=== PATIENT | male | born 1980 | race Caucasian/White ===

== ENCOUNTER 2021-06-01 10:59 | Emergency (ER) | payer SELFPAY ==
[2021-06-01 10:59] VITALS: BP 158/88; PULSE 56; RESP 18; TEMP 37.3; O2SAT 99; BMI 29.3
--- NOTE | 2021-06-01 11:58 | HMH.EDUTC ---
[facility] [place] Clinical Impression: Nausea vomiting and diarrhea Disposition: Home, Self-Care Condition on Discharge: Good Instructions: Diarrhea, DI for Cough -- Adult, Nausea and Vomiting-Adult Additional Instructions: Drink extra fluids with and between meals. If you have difficulty drinking, try very small amounts of water or suck on ice chips. ? Avoid fruit juices, as these do not replace minerals and can actually increase diarrhea. ? Children and adults can use sports drinks to replenish electrolytes. Younger children and infants should use products formulated for children, like oral rehydration solutions. ? Eat food in small amounts and let your stomach recover. ? Get lots of rest. You may feel tired or weak. ? No greasy or fried foods for the next 24-48 hours BRAT diet Bananas Rice Apples and [place] ? Make sure to drink plenty of liquids ? Return if needed ? Straight to ER if any life threatening symptoms ? Zofran as prescribed ? You was given an outpatient order for diarrhea panel, please collect specimen and bring back to outpatient lab then call back to the [facility] or follow up with family doctor for results ? Follow up with family doctor in the next 48-72 hours if no improvement or any worsening of symptoms Prescriptions: Ondansetron [Zofran 4mg ODT] 4 mg PO TIDP PRN #12 tab PRN Reason: Nausea Transmission Status: Received by [id number] Referrals: Provider,Referral, MD [Primary Care Provider] - As needed Forms: Work/School Release Time of Disposition: 12:28 Medical Decision Making - Antonio Inquiry Pt receiving controlled substance: No Antonio was queried for this patient: No Vital Signs: 06/01/21 10:59 06/01/21 12:28 Temperature 99.2 F 99.2 F Temperature Source Oral Pulse Rate 56 L Pulse Rate [Left Radial] 56 L Respiratory Rate 18 18 Blood Pressure 158/88 H Blood Pressure [Right Arm] 158/88 H Blood Pressure Mean [Right Arm] 111 Blood Pressure Source [Right Arm] Automatic Cuff Blood Pressure Position [Right Arm] Sitting 02 Sat by Pulse Oximetry 99 Oxygen Delivery Method Room Air Room Air Orders (Tests/Meds): ED MEDICATIONS Discontinued Medications Generic Name Dose Route Start Last Admin Trade Name Freq PRN Reason Stop Dose Admin Ondansetron HCl 4 mg 06/01/21 12:03 06/01/21 12:12 Ondansetron 4mg Odt SL 06/01/21 12:04 4 mg ONCE ONE Administration ORDERS Category Date Time Status Covid-19 Nasal PCR ([facility]) Routine Lab 06/01/21 11:13 Received Medical Decision Narrative: No vomiting since arrival able to keep down drink without vomiting after medication [facility] [place] - General Stated complaint: possible stomach bug Time Seen by Provider: 06/01/21 11:58 Mode of Arrival: Ambulatory Source of Information: Patient Limitations: No Limitations Description of Symptoms (Recalled from Triage Doc. by RN): c/o stomach pain and nausea, unable to keep anything down including water. Feels like it is the stomach bug that he had a few years back HEENT Symptoms (Recalled from RN notes): No Resp Symptoms (Recalled from RN notes): No Skin Symptoms (Recalled from RN notes): No MS Symptoms (Recalled from RN notes): No Functional Status (Recalled from RN notes): na - History of Present Illness Provider Complaint: Patient states that he has been having body aches, chills N/V/D States feels like a stomach bug he had a few years back States that today he has been having N/V/D and not been able to keep anything down so he came in to get checked before he got dehydrated Denies sore throat denies SOA - Related Data Previous Rx's Medication Instructions Recorded Ondansetron [Zofran 4mg ODT] 4 mg PO Q8HP PRN #30 tab.rapdis 01/17/19 Ondansetron [Zofran 4mg ODT] 4 mg PO TIDP PRN #12 tab 06/01/21 Allergies Allergy/AdvReac Type Severity Reaction Status Date / Time No Known Allergies Allergy Verified 01/17/19 14:46 - Worker's Comp Is this a Worker'
[2021-06-01 12:28] VITALS: BP 158/88; PULSE 56; RESP 18; TEMP 37.3; O2SAT 99
== END 2021-06-01 12:37 | disposition home or self-care (01) ==
PROVIDERS: Emergency Provider Nurse Practitioner
DX: R11.2 Nausea with vomiting, unspecified (principal); F17.210 Nicotine dependence, cigarettes, uncomplicated; Z20.822 Contact with and (suspected) exposure to COVID-19
CPT/HCPCS: 99202; C9803; G0463; U0003; U0005

== ENCOUNTER 2023-05-16 06:30 | Emergency (ER) | payer SELFPAY ==
[2023-05-16 06:31] VITALS: BP 128/86; PULSE 82; RESP 16; TEMP 36.9; O2SAT 100; BMI 29.5
[2023-05-16 06:35] VITALS: BP 128/86; PULSE 75; O2SAT 100
--- NOTE | 2023-05-16 06:59 | HMH.EDGENADL ---
Discharge Plan Disposition Patient Disposition: Home, Self-Care Prescriptions Prescriptions: New ondansetron 4 mg tablet,disintegrating 4 mg PO Q6H PRN (Reason: nausea and vomiting) 5 Days Qty: 20 0RF Referrals Follow up/Referrals: Provider,Referral, [Primary Care Provider] - See instructions Activity Restrictions/Add. Instructions Additional Instructions/Restrictions: Return with any worsening abdominal pain or inability to tolerate fluids or food by mouth. Clinical Impressions Clinical Impression: Nausea vomiting and diarrhea Instructions Patient Instructions: DI for Diarrhea and Traveler's Diarrhea -- Adult, DI for Diarrhea and Traveler's Diarrhea -- Child, DI for Nausea -- Adult, DI for Nausea -- Child Discharge ED Provider: Riccardo Vu Adult HPI <Radha Mohan MD - Last Filed: 05/16/23 07:55> General Chief complaint: Nausea/Vomiting/Diarrhea Stated complaint: Vomiting,diarrhea,abd pain Time Seen by Provider: 05/16/23 07:03 History of Present Illness HPI narrative: Patient is a previously healthy 42-year-old male here with nausea vomiting and diarrhea. States this has been ongoing since Monday. He currently denies any pain states he does not feel dehydrated. Nonbloody nonbilious emesis no blood in the stool no fevers subjectively. Related Data Previous Rx's Medication Instructions Recorded ondansetron 4 mg disintegrating 4 mg PO Q6H PRN nausea and 05/16/23 tablet vomiting 5 days #20 tabs Allergies Allergy/AdvReac Type Severity Reaction Status Date / Time No Known Allergies Allergy Verified 01/17/19 14:46 <Riccardo Vu MD - Last Filed: > General Mode of Arrival: Ambulatory Source of Information: Patient Limitations: No Limitations Description of Symptoms (Recalled from ER Triage Doc. by RN): pt reports n/v/d since Monday, reports taking Pepto and Zofran with some relief. Pt also reports burning with urination [facility] <Radha Mohan MD - Last Filed: 05/16/23 07:55> [facility] Social History Smoking Status: Current every day smoker tobacco type: cigarettes packs per day: 1 second hand exposure: Yes alcohol intake: current current occupational status: employed Travel in the last 8 weeks: None housing: house <Riccardo Vu MD - Last Filed: > [facility] Disclaimer: The information contained in this section may have been updated after the patient was seen, as this information can be updated by other users. <Radha Mohan MD - Last Filed: 05/16/23 07:55> ROS Obtained: Yes All systems reviewed & no additional complaints except as documented Physical Exam <Radha Mohan MD - Last Filed: 05/16/23 07:55> General General appearance: alert and in no apparent distress Respiratory Respiratory exam: Present normal lung sounds bilaterally Cardiovascular Cardiovascular exam: Present regular rate and other (Brisk capillary refill warm extremities); Absent tachycardia Abdominal Exam Abdominal exam: Present soft; Absent distention, tenderness, guarding, rebound or rigidity Neurological Exam Neurological exam: Present alert and oriented X3 Medical Decision Making <Radha Mohan MD - Last Filed: 05/16/23 07:55> Antonio Inquiry Pt receiving controlled substance: No Vital Signs: 05/16/23 06:31 05/16/23 06:35 05/16/23 07:30 Temperature 98.4 F Temperature Source Oral Pulse Rate 75 72 Pulse Rate [Right] 82 Respiratory Rate 16 Blood Pressure 128/86 129/81 Blood Pressure [Right Arm] 128/86 Blood Pressure Mean 108 99 Blood Pressure Mean [Right Arm] 100 Blood Pressure Source [Right Arm] Automatic Cuff 02 Sat by Pulse Oximetry 100 100 100 Oxygen Delivery Method Room Air Orders (Tests/Meds): ED MEDICATIONS Discontinued Medications Generic Name Dose Route Start Last Admin Trade Name Freq PRN Reason Stop Dose Admin Ondansetron HCl 4 mg 05/16/23 06:57 05/16/23 07:01 Ondansetron 4mg Odt SL 05/16/23 06:58 4 mg
[2023-05-16 07:05] LABS: Microscopic, Urine URINE MICROSCOPIC (MICROSCOPIC)
[2023-05-16 07:07] LABS: Appearance,Urine CLEAR (Clear); Blood, Urine 1+ (Negative); Color,Urine YELLOW (Yellow); Glucose,Urine (UA) Negative (Negative); Ketones,Urine 1+ (Negative); Leukocyte Esterase,Urine TRACE (Negative); Nitrate,Urine Negative (Negative); Protein,Urine TRACE (Negative); Specific Gravity, Urine 1.025 (1.005-1.030); Urobilinogen,Urine 0.2 EU/dl (0.2)
[2023-05-16 07:30] VITALS: BP 129/81; PULSE 72; O2SAT 100
[2023-05-16 08:04] VITALS: BP 129/81; PULSE 72; RESP 16; TEMP 36.9; O2SAT 100
[2023-05-16 08:06] LABS: Bilirubin,Urine Negative (Negative); RBC,Urine Occasional #/hpf (0-3); Squamous Epithelial Cell,Urine Occasional #/hpf (0-5)
[2023-05-16 08:07] LABS: Bacteria,Urine Trace /lpf
== END 2023-05-16 08:05 | disposition home or self-care (01) ==
PROVIDERS: Emergency Provider Emergency Medicine
DX: R11.0 Nausea (principal); R11.10 Vomiting, unspecified; R10.84 Generalized abdominal pain
CPT/HCPCS: 81001; 99283

== ENCOUNTER 2025-05-13 13:18 | Observation (INO) | payer MEDICAID, SELFPAY ==
[2025-05-13] VITALS (12 sets, daily range): BP systolic 113–164; BP diastolic 70–112; PULSE 99–127; RESP 12–19; TEMP 36.8–37.1; O2SAT 94–99; BMI 26.0; BMI 25.0
--- NOTE | 2025-05-13 13:31 | HMH.EDGENADL ---
Discharge Plan Disposition Patient Disposition: Admitted Clinical Impressions Clinical Impression: Nausea vomiting and diarrhea, Alcohol withdrawal Discharge ED Provider: Efra White General Adult HPI <ALIX Hansen - Last Filed: 05/13/25 16:38> General Chief complaint: Nausea/Vomiting/Diarrhea Stated complaint: weakness, diarrhea, vomiting, sore throat Time Seen by Provider: 05/13/25 13:30 Mode of Arrival: Ambulatory Source of Information: Patient Description of Symptoms (Recalled from ER Triage Doc. by RN): patient presents to the ED for nausea/vomiting/diarrhea that started 3 days ago. krishna states he cant keep anything down. rejit is also shaking in triage and states hes cold . History of Present Illness HPI narrative: This is a 44-year-old male presenting to the emergency department for evaluation of nausea, vomiting, and diarrhea. Patient reports symptoms first began 3 days ago as nausea. He had been around some people at work that had the stomach bug. Because of his nausea, he stopped drinking. Patient had previously been drinking approximately 5 shots of liquor every night. He has not done this for the past 2 nights. Since then he has had episodes of vomiting and diarrhea. He reports after he vomits he has some abdominal pain but otherwise does not. He has not had any chest pain or shortness of breath. No altered mental status, seizures. Prior to arrival the patient attempted an [id number] nausea medication that did not help his symptoms. Please note that the above description of symptoms, and this electronic medical record under categorization of was recalled from ER triage doctor by RN reflective of an initial nursing assessment, however, is not reflective of my full history and physical exam I was personally taken and clarified. Consequentially, this preceding description of symptoms which may include the patient's categorize chief complaint in the EMR, do not reflect my personal clinical impression, and the ultimate description of history of present illness send patient stated complaints should be deferred to the section of the note. Unless stated otherwise were congruent with the section of the note, additional signs, symptoms, or incongruence should be interpreted as an accurate with my clinical impression. Related Data Previous Rx's ?Medication ?Instructions ?Recorded ondansetron 4 mg disintegrating 4 mg PO Q6H PRN nausea and 05/16/23 tablet vomiting 5 days #20 tabs Allergies Allergy/AdvReac Type Severity Reaction Status Date / Time No Known Allergies Allergy Verified 01/17/19 14:46 PFSH <ALIX Hansen - Last Filed: 05/13/25 16:38> [facility] [place] Disclaimer: The information contained in this section may have been updated after the patient was seen, as this information can be updated by other users. Social History Smoking Status: Never smoker second hand exposure: Yes alcohol intake: current alcohol intake frequency: 0-2 drinks per day current occupational status: employed Travel in the last 8 weeks?: None housing: house Have you lived/traveled outside [place] in past 30 days?: No Contact w/someone who lives/traveled outside US past 30 days?: No Exposure to someone with infectious disease in past 14 days?: No Do you have a fever (greater than 100.4 F or 38 C)?: No Have you tested positive for COVID-19?: No Exposed to someone with COVID-19 in past 14 days?: No Do you have a sore throat?: No Do you have a cough?: No Do you have any weakness?: No Do you have any diarrhea?: No Are you experiencing any unusual bleeding?: No Do you have any muscle aches/pain?: No Do you have any abdominal pain?: No Are you experiencing loss of taste or smell?: No <ALIX Hansen - Last Filed: 05/13/25 16:38> ROS Obtained: Yes Systems reviewed as appropriate & no additional complaints except as documented Cardiovascular Cardiovascular: Denies chest pain, Denies diaphoresis and Denies syncope Respiratory Respiratory: Denies shortness of breath Gastrointestinal Gastrointestingal: Reports abdominal pain, diarrhea and vomiting Genitourinary Male Genitourinary: Denies difficulty urinating, Denies oliguria, Denies urinary frequency and Denies urinary incontinence Musculoskeletal Musculoskeletal: Denies abnormal gait Neurologic Neurologic: Denies abnormal gait, Denies abnormal movements, Denies seizure-like activity and Denies syncope Physical Exam <ALIX Hansen - Last Filed: 05/13/25 16:38> General General appearance: alert and in no apparent distress Head Head exam: atraumatic and normocephalic Eye Eye exam: Present scleral icterus Neck Neck exam: Present full ROM Respiratory Respiratory exam: Present normal lung sounds bilaterally; Absent respiratory distress Cardiovascular Cardiovascular exam: Present irregular rhythm; Absent regular rate or normal rhythm Abdominal Exam Abdominal exam: Present soft; Absent distention or tenderness Neurological Exam Neurological exam: Present alert and oriented X3 Medical Decision Making <ALIX Hansen - Last Filed: 05/13/25 16:38> Medical Records Medical records reviewed: Yes I reviewed the patient's medical records. Screening: Per USPSTF and CDC recommendations, given the prevalence of disease in our region, it is our hospital?s policy to screen for HIV and viral Hepatitis for all patients aged 18 and over and those with ongoing risk factors. Antonio Inquiry Pt receiving controlled substance: No Vital Signs: 05/13/25 13:20 05/13/25 14:01 05/13/25 14:42 Temperature 98.3 F Temperature Source Oral Pulse Rate 123 H 103 H Pulse Rate [Right Radial] 104 H Respiratory Rate 18 19 12 Blood Pressure 113/70 137/83 Blood Pressure [Right Arm] 164/112 H Blood Pressure Mean Blood Pressure Mean [Right Arm] 129 Blood Pressure Source [Right Arm] Automatic Cuff Blood Pressure Position [Right Arm] Sitting 02 Sat by Pulse Oximetry 97 94 L 97 Oxygen Delivery Method Room Air Room Air 05/13/25 15:16 05/13/25 15:31 05/13/25 16:00 Temperature Temperature Source Pulse Rate 99 H 127 H Pulse Rate [Right Radial] Respiratory Rate 17 16 Blood Pressure 136/84 136/76 143/93 H Blood Pressure [Right Arm] Blood Pressure Mean 101 93 Blood Pressure Mean [Right Arm] Blood Pressure Source [Right Arm] Blood Pressure Position [Right Arm] 02 Sat by Pulse Oximetry 97 97 Oxygen Delivery Method 05/13/25 16:31 Temperature Temperature Source Pulse Rate 103 H Pulse Rate [Right Radial] Respiratory Rate 16 Blood Pressure 135/81 Blood Pressure [Right Arm] Blood Pressure Mean Blood Pressure Mean [Right Arm] Blood Pressure Source [Right Arm] Blood Pressure Position [Right Arm] 02 Sat by Pulse Oximetry 98 Oxygen Delivery Method Lab Data Lab Results 05/13/25 10:17: WBC 13.8 H, RBC 5.32, Hgb 18.7 H, Hct 54.1 H, MCV 101.7 H, MCH 35.2 H, MCHC 34.6, RDW 13.8, Plt Count 233, MPV 10.1, Neut % (Auto) 80.9 H, Lymph % (Auto) 12.5, [place] % (Auto) 5.6, Eos % (Auto) 0.2, Baso % (Auto) 0.5, Neut # (Auto) 11.2 H, Lymph # (Auto) 1.7, [place] # (Auto) 0.8, Eos # (Auto) 0.0, Baso # (Auto) 0.1, Sodium 138, Potassium 4.0, Chloride 89 L, Carbon Dioxide 23, Anion Gap 30.0 H, BUN 14, Creatinine 1.60 H, Estimated Creat Clear 77, Estimated GFR 47 L, Est GFR ( Amer) 57 L, Glucose 120 H, Calcium 9.8, Total Bilirubin 6.7 H, AST 126 H, ALT 145 H, Alkaline Phosphatase 130 H, Troponin I < 0.01, Total Protein 9.2 H, Albumin 5.2 H, Globulin 4.0 H, Albumin/Globulin Ratio 1.3, Lipase 159 05/13/25 13:25: SARS-CoV-2 (PCR) Not detected, Influenza A Untype (PCR) Not detected, Influenza Type B (PCR) Not detected 05/13/25 13:42: Lactate 4.5 H, Magnesium 1.3 L, Direct Bilirubin 1.6 H, Lactate Dehydrogenase 208 L, Total Creatine Kinase 232 H, TSH 9.27 H, Free T4 1.24, Acetone Level None detected 05/13/25 10:17 05/13/25 10:17 Orders (Tests/Meds): ED MEDICATIONS Generic Name Dose Route Start Last Admin Trade Name Freq PRN Reason Stop Dose Admin Magnesium Sulfate 2 gm/ 1,015 mls @ 333 mls/hr 05/13/25 14:00 05/13/25 14:06 Thiamine HCl 100 mg/ IV 05/13/25 17:02 333 mls/hr Multivitamins 10 ml/ Lactated ONCE ONE Administration Ringer's Sodium Chloride 10 ml 05/13/25 14:36 05/13/25 14:37 Sodium Chloride 0.9% 10ml Syr (Rad Only) IV 06/12/25 14:35 10 ml NEEDED PRN Administration Maintain IV Site Discontinued Medications Generic Name Dose Route Start Last Admin Trade Name Freq PRN Reason Stop Dose Admin Diazepam 5 mg 05/13/25 13:45 05/13/25 13:59 Diazepam 10mg/2ml Syringe IV 05/13/25 13:46 5 mg ONCE ONE Administration Folic Acid 1 mg 05/13/25 14:00 05/13/25 14:06 Folic Acid 1mg Tablet PO 05/13/25 14:01 1 mg ONCE ONE Administration Iopamidol 75 ml 05/13/25 14:36 05/13/25 14:37 Iopamidol-370 (76%);100ml Bottle IV 05/13/25 14:37 75 ml ONCE ONE Administration Ondansetron HCl 4 mg 05/13/25 13:42 05/13/25 13:59 Ondansetron 4mg Odt SL 05/13/25 13:43 4 mg ONCE ONE Administration Sodium Chloride 1,000 ml 05/13/25 13:42 05/13/25 14:11 Sodium Chloride 0.9% 500ml Bag IV 05/13/25 13:43 Not Given ONCE ONE ORDERS Category Date Time Status CT abdomen pelvis w con Stat Cat Scan 05/13/25 14:18 Completed US gallbladder Stat Exams 05/13/25 14:39 Completed Acetaminophen Stat Lab 05/13/25 15:46 Ordered Acetone, Serum (Rapid) Stat Lab 05/13/25 13:42 Completed Bilirubin,Direct Stat Lab 05/13/25 13:42 Completed CBC w/Auto Diff [Complete Blood Count Auto Diff] Stat Lab 05/13/25 10:17 Completed CK [Creatine Kinase] Stat Lab 05/13/25 13:42 Completed CMP [Comprehensive Metabolic Panel] Stat Lab 05/13/25 10:17 Completed Free T4 (Free Thyroxine) Stat Lab 05/13/25 13:42 Completed Haptoglobin Stat Lab 05/13/25 13:42 Received Hepatitis Panel Stat Lab 05/13/25 14:37 Received LDH [Lactate Dehydrogenase] Stat Lab 05/13/25 13:42 Completed Lactic Acid Stat Lab 05/13/25 13:42 Completed Lipase Stat Lab 05/13/25 10:17 Completed Magnesium Stat Lab 05/13/25 13:42 Completed Osmolality Stat Lab 05/13/25 15:46 Ordered Rapid PCR Covid and Flu A/B Stat Lab 05/13/25 13:25 Completed Salicylate Stat Lab 05/13/25 15:46 Ordered TSH [Thyroid Stimulating Hormone] Stat Lab 05/13/25 13:42 Completed Trop I [Troponin I] Stat Lab 05/13/25 10:17 Completed Troponin I Q3H Lab 05/13/25 16:45 Ordered Troponin I Q3H Lab 05/13/25 19:45 Ordered Medical Decision Narrative: In summary, this is a 44-year-old male presenting to the emergency department today for evaluation of nausea, vomiting, and diarrhea. Symptoms first began 3 days ago as nausea. At this time patient stopped drinking alcohol which he had previously been a daily drinker. Since then he has had vomiting and diarrhea. He denies any chest pain, shortness of breath, headache, seizures. No history of alcohol withdrawal seizures. On exam patient appears to be uncomfortable but is nontoxic-appearing. Respiratory rate and effort are normal and nonlabored. Lungs are clear to auscultation bilaterally without adventitious sounds. Upon cardiac auscultation there is an irregularly irregular rhythm appreciated. The abdomen is soft, nondistended, nontender to palpation. Normal neurologic exam. Scleral icterus present. Differential diagnoses include but are not limited to alcohol withdrawal, vitamin deficiency, alcohol withdrawal, Warnicke encephalopathy, hepatitis, liver failure, A-fib, among others. We will obtain CBC, CMP, troponin, magnesium level, EKG. EKG reveals atrial fibrillation with RVR and a ventricular rate of 104. There are p waves present. Will give 5 mg of Valium to treat alcohol withdrawal. We will administer banana bag. CBC reveals leukocytosis with white count of 13.8. Neutrophils 80.9% H&H stable. CMP with anion gap of 30. Hypochloremia, creatinine elevated at 1.6. Magnesium low at 1.3. Total bili elevated at 6.7. Direct bilirubin elevated at 1.6. Mild transaminitis. AST 126. ALT 145. Alk phos 130. Acetone negative. First troponin negative. COVID and flu negative. CT abdomen and pelvis without acute abnormality. Ultrasound of the right upper quadrant shows fatty liver disease but no acute pathology. Lactate elevated at 4.5. TSH elevated. T4 normal indicating subclinical hypothyroidism. Patient may have alcohol induced hepatitis. Regardless of etiology, patient will require admission for continued workup and management. I consulted our hospital medicine team for admission of this patient. They have accepted to [facility] and continued management will be directed by their team. <Efra White DO - Last Filed: 05/13/25 17:00> Vital Signs: 05/13/25 13:20 05/13/25 14:01 05/13/25 14:42 Temperature 98.3 F Temperature Source Oral Pulse Rate 123 H 103 H Pulse Rate [Right Radial] 104 H Respiratory Rate 18 19 12 Blood Pressure 113/70 137/83 Blood Pressure [Right Arm] 164/112 H Blood Pressure Mean Blood Pressure Mean [Right Arm] 129 Blood Pressure Source [Right Arm] Automatic Cuff Blood Pressure Position [Right Arm] Sitting 02 Sat by Pulse Oximetry 97 94 L 97 Oxygen Delivery Method Room Air Room Air 05/13/25 15:16 05/13/25 15:31 05/13/25 16:00 Temperature Temperature Source Pulse Rate 99 H 127 H Pulse Rate [Right Radial] Respiratory Rate 17 16 Blood Pressure 136/84 136/76 143/93 H Blood Pressure [Right Arm] Blood Pressure Mean 101 93 Blood Pressure Mean [Right Arm] Blood Pressure Source [Right Arm] Blood Pressure Position [Right Arm] 02 Sat by Pulse Oximetry 97 97 Oxygen Delivery Method 05/13/25 16:31 Temperature Temperature Source Pulse Rate 103 H Pulse Rate [Right Radial] Respiratory Rate 16 Blood Pressure 135/81 Blood Pressure [Right Arm] Blood Pressure Mean Blood Pressure Mean [Right Arm] Blood Pressure Source [Right Arm] Blood Pressure Position [Right Arm] 02 Sat by Pulse Oximetry 98 Oxygen Delivery Method Lab Data Lab Results 05/13/25 10:17: WBC 13.8 H, RBC 5.32, Hgb 18.7 H, Hct 54.1 H, MCV 101.7 H, MCH 35.2 H, MCHC 34.6, RDW 13.8, Plt Count 233, MPV 10.1, Neut % (Auto) 80.9 H, Lymph % (Auto) 12.5, [place] % (Auto) 5.6, Eos % (Auto) 0.2, Baso % (Auto) 0.5, Neut # (Auto) 11.2 H, Lymph # (Auto) 1.7, [place] # (Auto) 0.8, Eos # (Auto) 0.0, Baso # (Auto) 0.1, Sodium 138, Potassium 4.0, Chloride 89 L, Carbon Dioxide 23, Anion Gap 30.0 H, BUN 14, Creatinine 1.60 H, Estimated Creat Clear 77, Estimated GFR 47 L, Est GFR ( Amer) 57 L, Glucose 120 H, Calcium 9.8, Total Bilirubin 6.7 H, AST 126 H, ALT 145 H, Alkaline Phosphatase 130 H, Troponin I < 0.01, Total Protein 9.2 H, Albumin 5.2 H, Globulin 4.0 H, Albumin/Globulin Ratio 1.3, Lipase 159 05/13/25 13:25: SARS-CoV-2 (PCR) Not detected, Influenza A Untype (PCR) Not detected, Influenza Type B (PCR) Not detected 05/13/25 13:42: Lactate 4.5 H, Magnesium 1.3 L, Direct Bilirubin 1.6 H, Lactate Dehydrogenase 208 L, Total Creatine Kinase 232 H, TSH 9.27 H, Free T4 1.24, Acetone Level None detected Orders (Tests/Meds): ED MEDICATIONS Generic Name Dose Route Start Last Admin Trade Name Antoinette PRN Reason Stop Dose Admin Magnesium Sulfate 2 gm/ 1,015 mls @ 333 mls/hr 05/13/25 14:00 05/13/25 14:06 Thiamine HCl 100 mg/ IV 05/13/25 17:02 333 mls/hr Multivitamins 10 ml/ Lactated ONCE ONE Administration Ringer's Sodium Chloride 10 ml 05/13/25 14:36 05/13/25 14:37 Sodium Chloride 0.9% 10ml Syr (Rad Only) IV 06/12/25 14:35 10 ml NEEDED PRN Administration Maintain IV Site Discontinued Medications Generic Name Dose Route Start Last Admin Trade Name Antoinette PRN Reason Stop Dose Admin Diazepam 5 mg 05/13/25 13:45 05/13/25 13:59 Diazepam 10mg/2ml Syringe IV 05/13/25 13:46 5 mg ONCE ONE Administration Folic Acid 1 mg 05/13/25 14:00 05/13/25 14:06 Folic Acid 1mg Tablet PO 05/13/25 14:01 1 mg ONCE ONE Administration Iopamidol 75 ml 05/13/25 14:36 05/13/25 14:37 Iopamidol-370 (76%);100ml Bottle IV 05/13/25 14:37 75 ml ONCE ONE Administration Ondansetron HCl 4 mg 05/13/25 13:42 05/13/25 13:59 Ondansetron 4mg Odt SL 05/13/25 13:43 4 mg ONCE ONE Administration Sodium Chloride 1,000 ml 05/13/25 13:42 05/13/25 14:11 Sodium Chloride 0.9% 500ml Bag IV 05/13/25 13:43 Not Given ONCE ONE ORDERS Category Date Time Status CT abdomen pelvis w con Stat Cat Scan 05/13/25 14:18 Completed US gallbladder Stat Exams 05/13/25 14:39 Completed Acetaminophen Stat Lab 05/13/25 15:46 Ordered Acetone, Serum (Rapid) Stat Lab 05/13/25 13:42 Completed Bilirubin,Direct Stat Lab 05/13/25 13:42 Completed CBC w/Auto Diff [Complete Blood Count Auto Diff] Stat Lab 05/13/25 10:17 Completed CK [Creatine Kinase] Stat Lab 05/13/25 13:42 Completed CMP [Comprehensive Metabolic Panel] Stat Lab 05/13/25 10:17 Completed Free T4 (Free Thyroxine) Stat Lab 05/13/25 13:42 Completed Haptoglobin Stat Lab 05/13/25 13:42 Received Hepatitis Panel Stat Lab 05/13/25 14:37 Received LDH [Lactate Dehydrogenase] Stat Lab 05/13/25 13:42 Completed Lactic Acid Stat Lab 05/13/25 13:42 Completed Lipase Stat Lab 05/13/25 10:17 Completed Magnesium Stat Lab 05/13/25 13:42 Completed Osmolality Stat Lab 05/13/25 15:46 Ordered Rapid PCR Covid and Flu A/B Stat Lab 05/13/25 13:25 Completed Salicylate Stat Lab 05/13/25 15:46 Ordered TSH [Thyroid Stimulating Hormone] Stat Lab 05/13/25 13:42 Completed Trop I [Troponin I] Stat Lab 05/13/25 10:17 Completed Troponin I Q3H Lab 05/13/25 16:45 Ordered Troponin I Q3H Lab 05/13/25 19:45 Ordered ECG Data Tracing #1: I reviewed this ECG and interpreted as documented below: EKG personally interpreted by me demonstrates normal sinus rhythm with a rate of 103 bpm, left axis, no SD prolongation, wide QRS with left bundle branch block morphology, no significant QTc prolongation. No STEMI by Sgarbossa criteria. There is upright QRS concordance with T waves in lead V6 but there is no ST elevation to meet criteria for STEMI Critical Care <ALIX Hansen - Last Filed: 05/13/25 16:38> Critical Care Time Critical Care Time: No
--- NOTE | 2025-05-13 13:35 | PC.NURSE ---
pt reports being a daily drinker. stopped 3 days ago and has been vomiting since
[2025-05-13 13:36] LABS: Coronavirus 19, PCR Not Detected (NotDetected); Influenza A, PCR Not Detected (NotDetected); Influenza B, PCR Not Detected (NotDetected)
--- NOTE | 2025-05-13 13:36 | ECG_ITS ---
APPROVED REPORT Exam: Resting ECG HR:103 bpm ECG Measurements Heart Rate 103 AXES QRSd 164 QRS -1 QT 399 T 114 QTc 459 Conclusion Normal sinus rhythm No PA prolongation Left bundle branch block Negative Jeffrbalicea Electronically signed by : Efra White, 05/13/2025 17:03:51
[2025-05-13] MEDS: ONDANSETRON 4MG ODT 4 MG SL (13:59)
[2025-05-13] MEDS: diazePAM 10MG/2ML SYRINGE 5 MG IV (13:59)
[2025-05-13 14:06] LABS: Alanine Aminotransferase 145 U/L (12-78); Albumin Level 5.2 g/dl (3.5-5.0); Albumin/Globulin Ratio 1.3 (1.1-1.8); Alkaline Phosphatase 130 U/L (38-126); Anion Gap 30.0 mEq/L (5-15); Aspartate Amino Transferase 126 U/L (17-59); Bilirubin,Total 6.7 mg/dl (0.2-1.3); Blood Urea Nitrogen 14 mg/dl (9-20); Calcium 9.8 mg/dl (8.4-10.2); Carbon Dioxide 23 mmol/L (22.0-30.0); Chloride 89 mmol/L (98-107); Creatinine Clearance Estimated 77 mL/min (50-200); Creatinine,Serum 1.60 mg/dl (0.66-1.25); Estimated Glomerular Filt Rate 47 ml/min (>60); GFR (African American) 57 ML/MIN (>60); Globulin 4.0 g/dL (1.3-3.2); Glucose 120 mg/dl (74-100); Potassium 4.0 mmoL/L (3.5-5.1); Sodium 138 mmol/L (136-145); Total Protein,Serum 9.2 g/dl (6.3-8.2)
[2025-05-13] MEDS: MAGNESIUM SULFATE 2 GM, THIAMINE HCL 100 MG, MVI, ADULT NO.1 WITH VIT K 10 ML in LACTAT... IV (14:06)
[2025-05-13] MEDS: FOLIC ACID 1MG TABLET 1 MG PO (14:06)
[2025-05-13 14:12] LABS: Lipase 159 U/L (23-300)
[2025-05-13 14:13] LABS: Magnesium 1.3 mg/dl (1.6-2.3)
--- NOTE | 2025-05-13 14:18 | CT_ITS ---
FINAL REPORT TECHNIQUE: Thin section axial images are obtained through the abdomen and pelvis after intravenous contrast. Reconstruction images were obtained from the axial data. Exam was performed using dose reduction techniques. CLINICAL HISTORY: abdominal pain; elevated billirubin, daily drinker, quit 3 days ago, vomiting FINDINGS: LUNG BASES: Lung bases are clear. Heart size is normal. LIVER: Diffusely fatty infiltrated. No focal lesion. GALLBLADDER/BILIARY SYSTEM: Gallbladder is present. No gallstones. No biliary dilatation. SPLEEN: Unremarkable. PANCREAS: Unremarkable. ADRENALS: Unremarkable. KIDNEYS/URETERS/BLADDER: No hydronephrosis, renal mass, or renal stone. Unremarkable urinary bladder. GI TRACT: Wall thickening of the distal esophagus. Esophagitis not excluded. No small bowel obstruction or dilatation. Normal appendix. No acute colon abnormality. PELVIC ORGANS: Unremarkable for age. LYMPH NODES/RETROPERITONEUM/MESENTERY: No lymphadenopathy. No abdominal aortic aneurysm. ABDOMINAL WALL: The abdominal wall is intact. FREE FLUID: No ascites. BONES: No acute osseous abnormality. IMPRESSION: No acute abnormality of the abdomen or pelvis. Reviewed, Interpreted and Dictated by Mirian Souza MD Transcribed by Tierra Winters Authenticated and . [facility]
[2025-05-13 14:21] LABS: Hematocrit 54.1 % (42.0-52.0); Immature Granulocytes % 0.3 %; Mean Corpuscular HGB Conc 34.6 g/dL (31.8-35.4); Mean Corpuscular Hemoglobin 35.2 pg (27.0-31.2); Mean Corpuscular Volume 101.7 fl (80-94); Nucleated Red Blood Cells % 0 %; Platelet Count 233 K/mm3 (142-424); Red Blood Count 5.32 M/mm3 (4.60-6.20); Red Cell Distribution Width-SD 52.2 fL; White Blood Count 13.8 K/mm3 (4.8-10.8)
[2025-05-13 14:24] LABS: Hemoglobin 18.7 g/dL (14.1-18.0)
[2025-05-13 14:26] LABS: Troponin I < 0.01 ng/ml (0.00-0.034)
[2025-05-13 14:27] LABS: Acetone, Serum (Rapid) None Detected (None Detect)
[2025-05-13] MEDS: IOPAMIDOL-370 (76%);100ML BOTTLE 75 ML IV (14:37)
[2025-05-13] MEDS: SODIUM CHLORIDE 0.9% 10ML SYR (RAD ONLY) 10 ML IV (14:37)
--- NOTE | 2025-05-13 14:39 | US_ITS ---
FINAL REPORT TECHNIQUE: Sonographic images of the right upper quadrant were obtained. CLINICAL HISTORY: Hyperbilirubinemia, RUQ pain FINDINGS: PANCREAS: Pancreatic head is normal. Tail is obscured. LIVER: Fatty infiltrated.. No focal hepatic lesion. No intrahepatic biliary ductal dilatation. GALLBLADDER: No gallstones. No gallbladder wall thickening or pericholecystic fluid. COMMON DUCT: 4 mm. Normal for age. RIGHT KIDNEY: The right kidney measures 10 cm. There is no hydronephrosis, mass, or stone. FREE FLUID: None. IMPRESSION: Fatty infiltration of the liver, otherwise unremarkable ultrasound of the right upper quadrant. Reviewed, Interpreted and Dictated by Mirian Souza MD Transcribed by Tierra Winters Authenticated and . [facility]
[2025-05-13 15:05] LABS: Bilirubin,Direct 1.6 mg/dl (0.0-0.4)
[2025-05-13 15:40] LABS: Creatine Kinase 232 U/L (55-170)
[2025-05-13 15:57] LABS: Free T4 (Free Thyroxine) 1.24 ng/dl (0.78-2.19)
[2025-05-13 16:12] LABS: Thyroid Stimulating Hormone 9.27 uIU/mL (0.465-4.68)
--- NOTE | 2025-05-13 16:38 | PC.NURSE ---
belt and link [employer] supervisor contacted for bed.
--- NOTE | 2025-05-13 16:53 | PC.NURSE ---
attempted to call report no answer
--- NOTE | 2025-05-13 16:57 | PC.NURSE ---
report given to cirilo eddy
--- NOTE | 2025-05-13 17:24 | PC.NURSE ---
arrived by w/c from ED
[2025-05-13 17:41] LABS: Acetaminophen < 10 ug/ml (10-30); Salicylate < 1.0 mg/dL (2.0-20.0)
[2025-05-13 17:42] LABS: Troponin I < 0.01 ng/ml (0.00-0.034)
--- NOTE | 2025-05-13 18:31 | P.HP_ITS ---
<Statement entered by Mark Pool MD - 05/16/25 11:59> Agree with plan of care as outlined by the [facility]. History of Present Illness *Admission Date: 05/13/25 *Reason for visit:: Nausea, vomiting, diarrhea *History of present illness: This is a 44-year-old male who has no significant past medical history who presents with a chief complaint of nausea, vomiting, and diarrhea. Due to patient's symptoms, he presented to the emergency room and evaluation. While in the emergency room, CT scan of the abdomen pelvis was negative for any acute intra-abdominal intrapelvic process. Ultrasound of the liver revealed fatty infiltration. Patient was tachycardic and there was a concern for potential withdrawal from alcohol. As a result, patient has been admitted for further management. During my evaluation of the patient, patient states he was recently exposed to a possible stomach bug from his coworkers. He reports nausea, nonbilious emesis, and diarrhea (2-3 episodes a day). Of note, patient states that he drinks 5 shots of wild turkey daily and has not had a shot of wild turkey for the past 3 days. Patient started to experience withdrawal symptomology. Patient states that he has been having a spasm occur in his right upper quadrant of his abdomen-he reports it happens intermittently. He is currently denying any chest pain, lightheadedness, dizziness, fever, chills, rigors, shortness of breath, dyspnea, PND, orthopnea. Patient is EKG was consistent with normal sinus rhythm, left bundle branch block, QTc of 451. Additional pertinent vitals obtained include a heart rate of 104, white blood cell 13.8, hemoglobin 18.7, hematocrit 54.1, venous lactic acid of 4.5, magnesium 1.3, CPK of 232, TSH 9.27, chloride of 89, creatinine 1.60, GFR 47, blood glucose 120, total bilirubin of 6.7, AST of 126, ALT of 145, alkaline phosphate 130, total protein 9.2, and albumin 5.2. [facility] Disclaimer: The information contained in this section may have been updated after the patient was seen, as this information can be updated by other users. Social History Smoking Status: Never smoker second hand exposure: Yes alcohol intake: current alcohol intake frequency: 0-2 drinks per day current occupational status: employed Travel in the last 8 weeks?: None housing: house Have you lived/traveled outside [place] in past 30 days?: No Contact w/someone who lives/traveled outside [place] past 30 days?: No Exposure to someone with infectious disease in past 14 days?: No Do you have a fever (greater than 100.4 F or 38 C)?: No Have you tested positive for COVID-19?: No Exposed to someone with COVID-19 in past 14 days?: No Do you have a sore throat?: No Do you have a cough?: No Do you have any weakness?: No Do you have any diarrhea?: No Are you experiencing any unusual bleeding?: No Do you have any muscle aches/pain?: No Do you have any abdominal pain?: No Are you experiencing loss of taste or smell?: No Other Medical History Have you received the Flu Vaccine for this season: No Have you received the Pneumonia Vaccine: No Review of Systems Review of Systems Review of systems:: pertinent systems reviewed and negative unless documented below Constitutional Constitutional: Reports body ache(s) and Reports poor appetite Eyes Eyes: Reports system reviewed and no additional complaints, except as documented ENT Ears, Nose, Mouth, and Throat: Reports system reviewed and no additional complaints, except as documented *Cardiovascular Cardiovascular: Reports system reviewed and no additional complaints, except as documented and Denies syncope *Respiratory Respiratory: Reports system reviewed and no additional complaints, except as documented *Gastrointestinal Gastrointestinal: Reports abdominal pain, Reports loose stools, Reports nausea and Reports vomiting *Genitourinary Genitourinary: Reports system reviewed and no additional complaints, except as documented *Musculoskeletal Musculoskeletal: Denies abnormal gait Integumentary/Breasts Skin/Breast: Reports system reviewed and no additional complaints, except as documented *Neurologic Neurologic: Reports system reviewed and no additional complaints, except as documented, Denies abnormal gait, Denies abnormal movements, Denies seizure-like activity and Denies syncope Psychiatric Psychiatric: Reports system reviewed and no additional complaints, except as documented Endocrine Endocrine: Reports system reviewed and no additional complaints, except as documented Hematologic/Lymphatic Hematologic/Lymphatic: Reports system reviewed and no additional complaints, except as documented Allergic/Immunologic Allergic/Immunologic: Reports system reviewed and no additional complaints, except as documented Meds Home Medications and Allergies New Prescriptions to Start Prescriptions: Allergies Allergy/AdvReac Type Severity Reaction Status Date / Time No Known Allergies Allergy Verified 01/17/19 14:46 Exam Data for Last 24 hours Vital signs and Labs for Last 24 Hours: Temp Pulse Resp BP Pulse Ox O2 Del Method 98.3 F 110 H 18 117/97 H 97 Room Air 05/13/25 17:31 05/13/25 17:31 05/13/25 17:31 05/13/25 17:31 05/13/25 17:31 05/13/25 18:25 Laboratory Results - last 24 hr 05/13/25 10:17: WBC 13.8 H, RBC 5.32, Hgb 18.7 H, Hct 54.1 H, MCV 101.7 H, MCH 35.2 H, MCHC 34.6, RDW 13.8, Plt Count 233, MPV 10.1, Neut % (Auto) 80.9 H, Lymph % (Auto) 12.5, Nicol[place] % (Auto) 5.6, Eos % (Auto) 0.2, Baso % (Auto) 0.5, Neut # (Auto) 11.2 H, Lymph # (Auto) 1.7, Nicol[place] # (Auto) 0.8, Eos # (Auto) 0.0, B aso # (Auto) 0.1, Sodium 138, Potassium 4.0, Chloride 89 L, Carbon Dioxide 23, Anion Gap 30.0 H, BUN 14, Creatinine 1.60 H, Estimated Creat Clear 77, Estimated GFR 47 L, Est GFR ( Amer) 57 L, Glucose 120 H, Calcium 9.8, Total Bilirubin 6.7 H, AST 126 H, ALT 145 H, Alkaline Phosphatase 130 H, Troponin I < 0.01, Total Protein 9.2 H, Albumin 5.2 H, Globulin 4.0 H, Albumin/Globulin Ratio 1.3, Lipase 159 05/13/25 13:25: SARS-CoV-2 (PCR) Not detected, Influenza A Untype (PCR) Not detected, Influenza Type B (PCR) Not detected 05/13/25 13:42: Lactate 4.5 H, Magnesium 1.3 L, Direct Bilirubin 1.6 H, Lactate Dehydrogenase 208 L, Total Creatine Kinase 232 H, TSH 9.27 H, Free T4 1.24, Acetone Level None detected 05/13/25 16:48: Troponin I < 0.01, Salicylates < 1.0 L, Acetaminophen < 10 L I & O for Last 24 hours: Intake & Output 05/10/25 05/11/25 05/12/25 05/13/25 23:59 23:59 23:59 23:59 Intake Total 1015 / 1015 Balance 1015 / 1015 Weight 89.584 kg Constitutional Constitutional: no acute distress and cooperative *Routine HEENT Exam Head: Present normocephalic Eye: Present EOMI and PERRL ENT: Present mucous membranes moist *Routine Neck Exam Neck: Present supple, full ROM and trachea midline *Routine Respiratory Exam Respiratory: Present CTA bilaterally, normal respiratory effort, able to speak in complete sentences and symmetric chest movement *Routine Cardiovascular Exam Cardiovascular: Present RRR, Normal S1 and Normal S2 *Routine Abdominal Exam Abdominal: Present soft and normoactive bowel sounds *Routine Rectal Exam Rectal:: deferred *Routine Genitalia Exam Genitalia:: deferred *Routine Extremities Exam Extremities: Present full ROM, pulses intact and normal capillary refill Routine Back/Spine/Pelvis Exam Back/Spine: Present full ROM *Routine Skin Exam Skin: Present intact, dry, warm and normal turgor *Routine Neurological Exam Neurological: Present alert, oriented X3, CN II-XII intact and moving all extremities Routine Psychiatric Exam Psychiatric: Present normal affect, normal thought process, cooperative, good insight and good judgment H&P: Result Impressions 44-year-old male with recent gastroenteritis presents with possible alcohol withdrawal symptoms last known drink was 3 days ago Assessment and Plan *Assessment and plan (1) Gastroenteritis: Status: Acute Category: Medical Code(s): K52.9 - Noninfective gastroenteritis and colitis, unspecified (2) Alcohol withdrawal: Status: Acute Qualifiers: Complication of substance-induced condition: with unspecified complication Qualified Code(s): F10.939 - Alcohol use, unspecified with withdrawal, unspecified Category: Medical Code(s): F10.939 - Alcohol use, unspecified with withdrawal, unspecified (3) Transaminitis: Status: Acute Category: Medical Code(s): R74.01 - Elevation of levels of liver transaminase levels (4) Elevated bilirubin: Status: Acute Category: Medical Code(s): R17 - Unspecified jaundice (5) Subclinical hypothyroidism: Status: Acute Category: Medical Code(s): E03.8 - Other specified hypothyroidism (6) Acute kidney injury: Status: Acute Category: Medical Code(s): N17.9 - Acute kidney failure, unspecified (7) Left bundle branch block: Status: Acute Category: Medical Code(s): I44.7 - Left bundle-branch block, unspecified (8) Leukocytosis: Status: Acute Qualifiers: Leukocytosis type: unspecified Qualified Code(s): D72.829 - Elevated white blood cell count, unspecified Category: Medical Code(s): D72.829 - Elevated white blood cell count, unspecified (9) Macrocytosis: Status: Acute Category: Medical Code(s): D75.89 - Other specified diseases of blood and blood-forming organs (10) Polycythemia: Status: Acute Category: Medical Code(s): D75.1 - Secondary polycythemia (11) Dehydration: Status: Acute Category: Medical Code(s): E86.0 - Dehydration (12) Lactic acidosis: Status: Acute Category: Medical Code(s): E87.20 - Acidosis, unspecified (13) Hepatic steatosis: Status: Acute Category: Medical Code(s): K76.0 - Fatty (change of) liver, not elsewhere classified Plan Assessment: Delirium tremors Transaminitis Elevated bilirubin Left bundle branch block Macrocytosis Hepatic steatosis -Will place patient on CIWA protocol - Unfortunately, we have no comparison EKG to determine if this left bundle branch block is new-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 Due to fatty liver and alcoholism - Will obtain INR - Had a discussion with the patient concerning fatty liver and alcoholism that fatty liver can be reversed, but coupled with alcoholism and fatty liver he could end up with cirrhosis which is nonreversible - Will consider 2D echo due to left bundle branch block-patient is currently without any chest pain Gastroenteritis Polycythemia Lactic acidosis Possible mild rhabdo Acute kidney injury; most likely prerenal; unknown baseline creatinine Leukocytosis with a left shift -Will obtain stool for culture would like to do BioFire - Normal saline at 125 mL an hour - Will trend CPK - Repeat venous lactic acid in a.m. - Patient's white blood cell count is most likely elevated due to contraction - However, patient started to have fever we will obtain blood cultures x 2 - Will obtain procalcitonin - I suspect white blood cell count with downward trend with IV hydration - Polycythemia is also in the setting of dehydration-Will trend hemoglobin hematocrit daily and I suspect this will improve with IV hydration - Patient's acute kidney injury is most likely in the setting of dehydration will trend daily. If no improvement will obtain renal ultrasound and urine studies Subclinical hypothyroidism - Will have patient follow-up with PCP as an outpatient - Free T4 was normal Plan: Admit patient to the MedSurg unit CBC/CMP daily CIWA protocol Vital signs every 4 hours Seizure precautions Regular diet 40 mg Lovenox subcu daily for DVT prophylaxis 21 mg nicotine patch daily 4 mg Zofran IV push every 6 hours as needed nausea and vomiting 40 mg of Protonix p.o. daily Full code I have discussed this case with attending physician Dr. Pool and I look fo kathiaard to more input
[2025-05-13] MEDS: 0.9 % SODIUM CHLORIDE 1000ML 1,000 ML 125 ML IV (19:03)
[2025-05-13 19:53] LABS: Reflex Lactic Add Lactic Reflex
[2025-05-13 20:21] LABS: Troponin I < 0.01 ng/ml (0.00-0.034)
[2025-05-13 20:32] LABS: Lactic Acid Follow Up (RFLX 1) 1.3 mmol/L (0.7-2.1)
[2025-05-13] MEDS: ONDANSETRON 4MG/2ML VIAL 4 MG IV (20:37)
[2025-05-13] MEDS: TRAMADOL 50MG TABLET 50 MG PO (20:37)
[2025-05-13] MEDS: NICOTINE 21MG/24HR PATCH 21 MG TD (20:38)
[2025-05-13] MEDS: PANTOPRAZOLE 40MG TABLET 40 MG PO (20:38)
[2025-05-14] VITALS: PULSE 110
[2025-05-14 04:00] VITALS: BP 157/78; PULSE 100; PULSE 103; RESP 15; TEMP 37.1; O2SAT 95; BMI 25.0
[2025-05-14 06:57] LABS: Hematocrit 47.5 % (42.0-52.0); Immature Granulocytes % 0.3 %; Mean Corpuscular HGB Conc 34.3 g/dL (31.8-35.4); Mean Corpuscular Hemoglobin 35.2 pg (27.0-31.2); Mean Corpuscular Volume 102.6 fl (80-94); Nucleated Red Blood Cells % 0 %; Platelet Count 171 K/mm3 (142-424); Red Blood Count 4.63 M/mm3 (4.60-6.20); Red Cell Distribution Width-SD 53.2 fL; White Blood Count 9.2 K/mm3 (4.8-10.8)
[2025-05-14 07:02] LABS: Albumin Level 4.0 g/dl (3.5-5.0); Chloride 92 mmol/L (98-107); Potassium 3.8 mmoL/L (3.5-5.1); Sodium 133 mmol/L (136-145)
[2025-05-14 07:03] LABS: INR 1.19 (0.9-1.1); Prothrombin Time 13.0 seconds (10.1-12.5)
[2025-05-14 07:04] LABS: Alanine Aminotransferase 85 U/L (12-78); Alkaline Phosphatase 86 U/L (38-126); Aspartate Amino Transferase 74 U/L (17-59); Bilirubin,Total 5.9 mg/dl (0.2-1.3)
[2025-05-14 07:05] LABS: Albumin/Globulin Ratio 1.2 (1.1-1.8); Anion Gap 16.8 mEq/L (5-15); Calcium 8.2 mg/dl (8.4-10.2); Carbon Dioxide 28 mmol/L (22.0-30.0); Creatine Kinase 223 U/L (55-170); Globulin 3.4 g/dL (1.3-3.2); Glucose 74 mg/dl (74-100); Magnesium 2.0 mg/dl (1.6-2.3); Total Protein,Serum 7.4 g/dl (6.3-8.2)
[2025-05-14 08:00] VITALS: BP 138/87; PULSE 90; PULSE 95; RESP 18; TEMP 36.8; O2SAT 97
[2025-05-14 08:30] VITALS: O2SAT 97
[2025-05-14] MEDS: MVI, ADULT NO.1 WITH VIT K 10 ML, THIAMINE HCL 100 MG, MAGNESIUM SULFATE 2 GM in LACTAT... 125 ML IV (09:27)
[2025-05-14] MEDS: FOLIC ACID 1MG TABLET 1 MG PO (09:27)
[2025-05-14] MEDS: THIAMINE 100MG TABLET 100 MG PO (09:27)
[2025-05-14 09:40] LABS: Hemoglobin 16.4 g/dL (14.1-18.0)
--- NOTE | 2025-05-14 09:59 | P.DS_ITS ---
<Statement entered by Mark Pool MD - 05/16/25 11:55> Agree with plan of care as outlined by the PURIFICATION SUPERVISOR. General Admission date:: 05/13/25 Discharge date: 05/14/25 HPI HPI HPI: This is a 44-year-old male who has no significant past medical history who presents with a chief complaint of nausea, vomiting, and diarrhea. Due to patient's symptoms, he presented to the emergency room and evaluation. While in the emergency room, CT scan of the abdomen pelvis was negative for any acute intra-abdominal intrapelvic process. Ultrasound of the liver revealed fatty infiltration. Patient was tachycardic and there was a concern for potential withdrawal from alcohol. As a result, patient has been admitted for further management. During my evaluation of the patient, patient states he was recently exposed to a possible stomach bug from his coworkers. He reports nausea, nonbilious emesis, and diarrhea (2-3 episodes a day). Of note, patient states that he drinks 5 shots of wild turkey daily and has not had a shot of wild turkey for the past 3 days. Patient started to experience withdrawal symptomology. Patient states that he has been having a spasm occur in his right upper quadrant of his abdomen-he reports it happens intermittently. He is currently denying any chest pain, lightheadedness, dizziness, fever, chills, rigors, shortness of breath, dyspnea, PND, orthopnea. Patient is EKG was consistent with normal sinus rhythm, left bundle branch block, QTc of 451. Additional pertinent vitals obtained include a heart rate of 104, white blood cell 13.8, hemoglobin 18.7, hematocrit 54.1, venous lactic acid of 4.5, magnesium 1.3, CPK of 232, TSH 9.27, chloride of 89, creatinine 1.60, GFR 47, blood glucose 120, total bilirubin of 6.7, AST of 126, ALT of 145, alkaline phosphate 130, total protein 9.2, and albumin 5.2. Hospital Course Hospital Course Hospital Course: Mr. Toribio is a 44-year-old male who presented to the emergency department yesterday with complaints of nausea, vomiting, abdominal pain, and diarrhea. Patient states that his symptoms began 2 to 3 days ago. He states that he is a daily drinker, approximately 5 shots of wild turkey daily. Patient states he has not had any alcohol in approximately 3 days. He believes he is starting to experience withdrawal symptoms. He states that he has been having spasms that occur in his right upper quadrant of his abdomen. Initial CIWA on admission was 17 (nausea, vomiting, tremors, anxiety, sweating, mild itching). Patient was given rally pack, IV Valium, Zofran. He did well with medications, multiple CIWA's prior to discharge were 0. After speaking with patient, he was interested in speaking with peers support, Анна. #Transaminitis #Elevated bilirubin #Hepatic stenosis #Alcohol use disorder ? Patient doing well this morning. Denies nausea, vomiting, diarrhea. He is not tremulous or diaphoretic. Patient states he is having very mild abdominal pain, rating it a 2/10. Lab work reassuring, WBC 9.2, no anemia noted, sodium 133, potassium 3.8. Magnesium improved to 2.0. LFTs improved, AST 74, ALT 85. ? Анна (peers support) discussed starting naltrexone for alcohol cravings. Patient current LFTs are elevated so we will have to wait to initiate medication. Patient is interested in attending recovery meetings and following up with peers support. Patient currently does not have insurance, working on obtaining now, but would like to follow-up with [facility] and a PCP once he obtains insurance benefits. Will make follow-up for peers support. ?Patient had right upper quadrant ultrasound which showed fatty liver. #Acute kidney injury ? Patient initial creatinine elevated at 1.6, likely in the setting of dehydration. Fluids overnight, repeat creatinine day of discharge 1.3. Unsure if patient baseline. Patient should follow with PCP in the coming weeks for further evaluation of kidney function. #Anxiety ? Patient states he is anxious about what is to come. Plans to do recovery meetings. Awaiting insurance for further alcohol craving management. Will initiate medication for anxiety. BuSpar 10 mg twice daily. #Subclinical hypothyroidism ? Patient's TSH on admission was elevated 9.27, free T4 within normal limits. Discussed with patient needing to follow with PCP for repeat TSH in 4 to 6 weeks and possible initiation of thyroid hormone medication. Total time spent on discharge 32 minutes in counseling, documentation, chart review, and direct care with patient. Exam Data for Last 24 hours Vital signs and Labs for Last 24 Hours: Temp Pulse Resp BP Pulse Ox O2 Del Method O2 Flow Rate 98.3 F 95 H 18 138/87 97 Room Air 2 05/14/25 08:00 05/14/25 08:00 05/14/25 08:00 05/14/25 08:00 05/14/25 08:00 05/14/25 08:00 05/14/25 05:00 Laboratory Results - last 24 hr 05/13/25 10:17: WBC 13.8 H, RBC 5.32, Hgb 18.7 H, Hct 54.1 H, MCV 101.7 H, MCH 35.2 H, MCHC 34.6, RDW 13.8, Plt Count 233, MPV 10.1, Neut % (Auto) 80.9 H, Lymph % (Auto) 12.5, [place] % (Auto) 5.6, Eos % (Auto) 0.2, Baso % (Auto) 0.5, Neut # (Auto) 11.2 H, Lymph # (Auto) 1.7, [place] # (Auto) 0.8, Eos # (Auto) 0.0, Baso # (Auto) 0.1, Sodium 138, Potassium 4.0, Chloride 89 L, Carbon Dioxide 23, Anion Gap 30.0 H, BUN 14, Creatinine 1.60 H, Estimated Creat Clear 77, Estimated GFR 47 L, Est GFR ( Amer) 57 L, Glucose 120 H, Calcium 9.8, Total Bilirubin 6.7 H, AST 126 H, ALT 145 H, Alkaline Phosphatase 130 H, Troponin I < 0.01, Total Protein 9.2 H, Albumin 5.2 H, Globulin 4.0 H, Albumin/Globulin Ratio 1.3, Lipase 159 05/13/25 13:25: SARS-CoV-2 (PCR) Not detected, Influenza A Untype (PCR) Not dete cted, Influenza Type B (PCR) Not detected 05/13/25 13:42: Haptoglobin 141, Lactate 4.5 H, Magnesium 1.3 L, Direct Bilir ubin 1.6 H, Lactate Dehydrogenase 208 L, Total Creatine Kinase 232 H, TSH 9.27 H , Free T4 1.24, Acetone Level None detected 05/13/25 14:37: Hepatitis A IgM Ab Negative, Hep Bs Antigen Negative, Hep B Core IgM Ab Negative, Hepatitis C Antibody Non reactive, HCV RNA PCR Test Info Comment 05/13/25 16:48: Troponin I < 0.01, Salicylates < 1.0 L, Acetaminophen < 10 L 05/13/25 19:41: Troponin I < 0.01 05/13/25 20:15: Lactate 1.3 05/14/25 06:19: WBC 9.2 D, RBC 4.63, Hgb 16.4 D, Hct 47.5, MCV 102.6 H, MCH 35.2 H, MCHC 34.3, RDW 13.9, Plt Count 171 D, MPV 9.9, Neut % (Auto) 66.1, Lymph % (Auto) 23.2, [place] % (Auto) 9.4 H, Eos % (Auto) 0.7, Baso % (Auto) 0.3, Neut # (Auto) 6.1, Lymph # (Auto) 2.1, [place] # (Auto) 0.9, Eos # (Auto) 0.1, Baso # (Auto) 0.0, PT 13.0 H, INR 1.19 H, Sodium 133 L, Potassium 3.8, Chloride 92 L, Carbon Dioxide 28, Anion Gap 16.8 H, Glucose 74 D, Calcium 8.2 L, Magnesium 2.0 D, Total Bilirubin 5.9 H, AST 74 H D, ALT 85 H D, Alkaline Phosphatase 86, Total Creatine Kinase 223 H, Total Protein 7.4, Albumin 4.0 D, Globulin 3.4 H, Albumin/Globulin Ratio 1.2 I & O for Last 24 hours: Intake & Output 05/11/25 05/12/25 05/13/25 05/14/25 23:59 23:59 23:59 23:59 Intake Total 1015 / 1015 1000 / 1000 Balance 1015 / 1015 1000 / 1000 Weight 89.584 kg 89.63 kg Results Data Completed and Pending Labs on day of discharge: Labs from last 24 hours 05/14/25 05/13/25 05/13/25 06:19 20:15 19:41 WBC 9.2 D RBC 4.63 Hgb 16.4 D Hct 47.5 MCV 102.6 H MCH 35.2 H MCHC 34.3 RDW 13.9 Plt Count 171 D MPV 9.9 Neut % (Auto) 66.1 Lymph % (Auto) 23.2 [place] % (Auto) 9.4 H Eos % (Auto) 0.7 Baso % (Auto) 0.3 Neut # (Auto) 6.1 Lymph # (Auto) 2.1 [place] # (Auto) 0.9 Eos # (Auto) 0.1 Baso # (Auto) 0.0 Haptoglobin PT 13.0 H INR 1.19 H Sodium 133 L Potassium 3.8 Chloride 92 L Carbon Dioxide 28 Anion Gap 16.8 H BUN Creatinine Estimated Creat Clear Estimated GFR Est GFR ( Amer) Glucose 74 D Lactate 1.3 Calcium 8.2 L Magnesium 2.0 D Total Bilirubin 5.9 H Direct Bilirubin AST 74 H D ALT 85 H D Alkaline Phosphatase 86 Lactate Dehydrogenase Total Creatine Kinase 223 H Troponin I < 0.01 Total Protein 7.4 Albumin 4.0 D Globulin 3.4 H Albumin/Globulin Ratio 1.2 Lipase TSH Free T4 Salicylates Acetaminophen Acetone Level SARS-CoV-2 (PCR) Hepatitis A IgM Ab Hep Bs Antigen Hep B Core IgM Ab Hepatitis C Antibody HCV RNA PCR Test Info Influenza A Untype (PCR) Influenza Type B (PCR) 05/13/25 05/13/25 05/13/25 16:48 14:37 13:42 WBC RBC Hgb Hct MCV MCH MCHC RDW Plt Count MPV Neut % (Auto) Lymph % (Auto) [place] % (Auto) Eos % (Auto) Baso % (Auto) Neut # (Auto) Lymph # (Auto) [place] # (Auto) Eos # (Auto) Baso # (Auto) Haptoglobin 141 PT INR Sodium Potassium Chloride Carbon Dioxide Anion Gap BUN Creatinine Estimated Creat Clear Estimated GFR Est GFR ( Amer) Glucose Lactate 4.5 H Calcium Magnesium 1.3 L Total Bilirubin Direct Bilirubin 1.6 H AST ALT Alkaline Phosphatase Lactate Dehydrogenase 208 L Total Creatine Kinase 232 H Troponin I < 0.01 Total Protein Albumin Globulin Albumin/Globulin Ratio Lipase TSH 9.27 H Free T4 1.24 Salicylates < 1.0 L Acetaminophen < 10 L Acetone Level None detected SARS-CoV-2 (PCR) Hepatitis A IgM Ab Negative Hep Bs Antigen Negative Hep B Core IgM Ab Negative Hepatitis C Antibody Non reactive HCV RNA PCR Test Info Comment Influenza A Untype (PCR) Influenza Type B (PCR) 05/13/25 05/13/25 13:25 10:17 WBC 13.8 H RBC 5.32 Hgb 18.7 H Hct 54.1 H MCV 101.7 H MCH 35.2 H MCHC 34.6 RDW 13.8 Plt Count 233 MPV 10.1 Neut % (Auto) 80.9 H Lymph % (Auto) 12.5 [place] % (Auto) 5.6 Eos % (Auto) 0.2 Baso % (Auto) 0.5 Neut # (Auto) 11.2 H Lymph # (Auto) 1.7 [place] # (Auto) 0.8 Eos # (Auto) 0.0 Baso # (Auto) 0.1 Haptoglobin PT INR Sodium 138 Potassium 4.0 Chloride 89 L Carbon Dioxide 23 Anion Gap 30.0 H BUN 14 Creatinine 1.60 H Estimated Creat Clear 77 Estimated GFR 47 L Est GFR ( Amer) 57 L Glucose 120 H Lactate Calcium 9.8 Magnesium Total Bilirubin 6.7 H Direct Bilirubin AST 126 H ALT 145 H Alkaline Phosphatase 130 H Lactate Dehydrogenase Total Creatine Kinase Troponin I < 0.01 Total Protein 9.2 H Albumin 5.2 H Globulin 4.0 H Albumin/Globulin Ratio 1.3 Lipase 159 TSH Free T4 Salicylates Acetaminophen Acetone Level SARS-CoV-2 (PCR) Not detected Hepatitis A IgM Ab Hep Bs Antigen Hep B Core IgM Ab Hepatitis C Antibody HCV RNA PCR Test Info Influenza A Untype (PCR) Not detected Influenza Type B (PCR) Not detected DS: Diagnosis Discharge Diagnosis (1) Gastroenteritis: Status: Acute Code(s): K52.9 - Noninfective gastroenteritis and colitis, unspecified (2) Alcohol withdrawal: Status: Acute Code(s): F10.939 - Alcohol use, unspecified with withdrawal, unspecified Qualifiers: Complication of substance-induced condition: with unspecified complication Qualified Code(s): F10.939 - Alcohol use, unspecified with withdrawal, unspecified (3) Transaminitis: Status: Acute Code(s): R74.01 - Elevation of levels of liver transaminase levels (4) Elevated bilirubin: Status: Acute Code(s): R17 - Unspecified jaundice (5) Subclinical hypothyroidism: Status: Acute Code(s): E03.8 - Other specified hypothyroidism (6) Acute kidney injury: Status: Acute Code(s): N17.9 - Acute kidney failure, unspecified (7) Left bundle branch block: Status: Acute Code(s): I44.7 - Left bundle-branch block, unspecified (8) Leukocytosis: Status: Acute Code(s): D72.829 - Elevated white blood cell count, unspecified Qualifiers: Leukocytosis type: unspecified Qualified Code(s): D72.829 - Elevated white blood cell count, unspecified (9) Macrocytosis: Status: Acute Code(s): D75.89 - Other specified diseases of blood and blood-forming organs (10) Polycythemia: Status: Acute Code(s): D75.1 - Secondary polycythemia (11) Dehydration: Status: Acute Code(s): E86.0 - Dehydration (12) Lactic acidosis: Status: Acute Code(s): E87.20 - Acidosis, unspecified (13) Hepatic steatosis: Status: Acute Code(s): K76.0 - Fatty (change of) liver, not elsewhere classified Meds Home Medications and Allergies Home Medications ?Medication ?Instructions ?Recorded ?Confirmed ?Type buspirone 10 mg tablet 10 mg PO BID #60 tabs Rx New Prescriptions to Start Prescriptions: Mirela Anderson Allergies Allergy/AdvReac Type Severity Reaction Status Date / Time No Known Allergies Allergy Verified 01/17/19 14:46 Discharge Plan Disposition Patient Disposition: Home, Self-Care Condition: Good Follow up Plan Follow up with: Анна Crawford [[employer], Peer Support] - Enter time for follow up Prescriptions/Medication Reconciliation: New buspirone 10 mg tablet 10 mg PO BID Qty: 60 0RF Problem Reconciliation Problems Reviewed?: Yes Patient Discharge Instructions ACTIVITY: Continue current activity DIET: advance to your usual diet Patient Instructions: Alcohol and Stress: There are Safer Ways to [place], Jaundice, Alcohol Withdrawal, DI for Colitis Print Language: Sammarinese Providers Primary Care Provider: Provider,Referral Admit Provider: Mark Pool Attending Provider: Mark Pool
[2025-05-14 12:00] VITALS: BP 151/84; PULSE 101; PULSE 80; RESP 18; TEMP 36.4; O2SAT 97
[2025-05-14 12:11] LABS: Blood Urea Nitrogen 19 mg/dl (9-20); Creatinine Clearance Estimated 92 mL/min (50-200); Creatinine,Serum 1.30 mg/dl (0.66-1.25); Estimated Glomerular Filt Rate 60 ml/min (>60); GFR (African American) 73 ML/MIN (>60)
--- NOTE | 2025-05-14 13:05 | PEERSUPPORT ---
Peer Support Note Patient Information Patient Information: DOS: 05/14/2025 ? ETOH Last Ingested: 05/10/2025 ? ETOH HX: Stated he use to only drink on the weekends, until two years ago following of his mother. He began to drink heavily, wild turkey up to two fifths per week to present. ? ETHO Current Consumption: Two fifths to a half gallon of Wild turkey per week. Pt states he does drink when he wakes up but does not while he is working. ? Previous Treatment: None ? Longest Length of Sobriety: ? Legal Issues: None ? Support System: Nephew- at bedside, who is also his roommate. Aware of his situation and goal to be sober. Sister- supportive, aware of his situation and goal to be sober. ? Current Stressors: -Work responsibility -Triggers and urges to drink once discharged -Health condition linking to his drinking habits ? Motivation for Change: -Pt is motivated to enroll in [facility] program to assist him with his alcohol use disorder. He is honest and forth coming of his drinking habits and underlying issues following the of his mother. ? He is interested in attending meetings locally to build recovery connections and maintain his sobriety. ? Pt is interested in naltrexone medication for alcohol use disorder. ? Ps shared personal experience relevant to situation, bringing hope and strength to possibilities of sobriety. ? Pt receptive to support and accepting of resources.? ? -Potential Barriers: -Lack of connection to recovery -No insurance -No primary care ? Harm Reduction: -Connection to [facility] -Education on alcohol use disorder -Treatment referrals/ resources local recovery meetings -Self-Help packet/ Relapse Prevention Plan ? Plan of action: -Refrain from alcohol use -Take medications as prescribed -Follow ups with [facility] ?
[2025-05-14 13:49] LABS: Thyroid Stimulating Hormone 15.60 uIU/mL (0.465-4.68)
[2025-05-14 14:34] LABS: Free T4 (Free Thyroxine) 1.25 ng/dl (0.78-2.19)
[2025-05-14 19:57] LABS: Procalcitonin 0.195 ng/mL (0.0-2.0)
[2025-05-14 21:16] LABS: Folate 2.98 ng/mL
[2025-05-14 23:46] LABS: Vitamin B12 568 pg/mL (239-931)
--- NOTE | 2025-05-15 10:24 | SW/DCPLANNER ---
Spoke with patient on the phone. Patient stated that he is doing good. Patient stated that he forgot about his appointment today and that he has to find a ride. I gave him the number to the [facility] care a van. Patient stated that he was able to get his new medicine picked up from [facility]. Patient stated that he has no concerns or questions at this time. Tegan David
== END 2025-05-14 14:02 | disposition home or self-care (01) ==
LOC: ER 16:36 → 2ND 16:44
PROVIDERS: Nurse Practitioner Family; Physician Assistant; Admitting Provider Student in an Organized Health Care Education/Training Program; Emergency Provider Student in an Organized Health Care Education/Training Program; Visit Provider Student in an Organized Health Care Education/Training Program
DX: F10.231 Alcohol dependence with withdrawal delirium (principal); K76.0 Fatty (change of) liver, not elsewhere classified; K76.89 Other specified diseases of liver; R74.01 Elevation of levels of liver transaminase levels; K52.9 Noninfective gastroenteritis and colitis, unspecified; N17.9 Acute kidney failure, unspecified; F41.9 Anxiety disorder, unspecified; E03.8 Other specified hypothyroidism; I44.7 Left bundle-branch block, unspecified; D72.829 Elevated white blood cell count, unspecified; D75.89 Other specified diseases of blood and blood-forming organs; D75.1 Secondary polycythemia; E86.0 Dehydration; E87.20 Acidosis, unspecified
CPT/HCPCS: 36415; 74177; 76705; 80053; 80074; 80329; 82009; 82248; 82550; 82607; 82746; 83010; 83605; 83615; 83690; 83735; 83930; 84145; 84439; 84443; 84484; 85025; 85610; 87636; 93005; 96365; 96366; 96372; 96375; 99285; G0378; J1650; J2405; J3360; J3411; J3475; J7030; J7120; Q0162; Q9967

== ENCOUNTER 2025-05-19 17:15 | Outpatient (CLI) | payer MEDICAID, SELFPAY ==
[2025-05-19 20:09] LABS: Chloride 103 mmol/L (98-107)
[2025-05-19 20:10] LABS: Albumin Level 4.0 g/dl (3.5-5.0); Potassium 4.7 mmoL/L (3.5-5.1); Sodium 136 mmol/L (136-145)
[2025-05-19 20:12] LABS: Blood Urea Nitrogen 8 mg/dl (9-20); Creatinine,Serum 1.10 mg/dl (0.66-1.25); Estimated Glomerular Filt Rate 73 ml/min (>60); GFR (African American) 88 ML/MIN (>60)
[2025-05-19 20:13] LABS: Alanine Aminotransferase 112 U/L (12-78); Albumin/Globulin Ratio 1.2 (1.1-1.8); Alkaline Phosphatase 89 U/L (38-126); Anion Gap 14.7 mEq/L (5-15); Aspartate Amino Transferase 104 U/L (17-59); Bilirubin,Total 1.0 mg/dl (0.2-1.3); Calcium 8.8 mg/dl (8.4-10.2); Carbon Dioxide 23 mmol/L (22.0-30.0); Globulin 3.3 g/dL (1.3-3.2); Glucose 77 mg/dl (74-100); Total Protein,Serum 7.3 g/dl (6.3-8.2)
== END 2025-05-19 23:59 | disposition home or self-care (01) ==
LOC: LAB.DROPOF 05-20 17:15
PROVIDERS: PCP Student in an Organized Health Care Education/Training Program; Visit Provider Student in an Organized Health Care Education/Training Program
DX: R74.01 Elevation of levels of liver transaminase levels (principal)
CPT/HCPCS: 80053